=== PATIENT | female | born 1950 | race Caucasian/White ===

== ENCOUNTER 2017-05-04 18:45 | Emergency (ER) | payer BC ==
[2017-05-04 19:14] LABS: URINE APPEARANCE Cloudy; URINE BILIRUBIN Negative (NEGATIVE); URINE BLOOD 3+ (NEGATIVE); URINE GLUCOSE (UA) Negative (NEGATIVE); URINE KETONE Negative (NEGATIVE); URINE LEUK ESTERASE Negative (NEGATIVE); URINE NITRITE Negative (NEGATIVE); URINE PROTEIN 1+ (NEGATIVE); URINE UROBILINOGEN 0.2 (0.2-1.0)
[2017-05-04 19:15] LABS: URINE COLOR DK YELLOW
[2017-05-04 19:22] LABS: URINE RBC >100 /hpf (0-3)
[2017-05-04] MEDS ORDERED: morphine CARPU-JECT 4 MG/1 ML DISP.SYRIN IVPUSH ONE (19:30)
[2017-05-04] MEDS ORDERED: SODIUM CHLORIDE 0.9% 1000 ML INFUS.BAG IV ONE (19:31)
--- NOTE | 2017-05-04 19:58 | PDOC ---
History of Present Illness - General History Source: Patient Exam Limitations: No Limitations - History of Present Illness Initial Comments: 05/04/17 20:09 The patient is a 66 year old female, with a significant past medical history of hypertension, hyperlipidemia, and diabetes, who presents to the emergency department with complaints of right flank pain that began an hour and 30 minutes prior to arrival. The patient states that pain radiates to the front right side of her abdomen and notes she has had kidney stones in the past. She notes some associated nausea. She denies chest pain, shortness of breath, headache and dizziness. She denies fever, chills, vomit, diarrhea and constipation. She denies dysuria, frequency, urgency and hematuria. Allergies: rofecoxib Social history: Never smoked PCP: Dr. Jerson Johns <Nimco Jefferson - Last Filed: 05/04/17 21:35> - General History Source: Patient Exam Limitations: No Limitations - History of Present Illness Initial Comments: 05/04/17 19:55 66 yo F with h/o HTN here wtih c/o right flank pain, radiating from right flank to anterior abdomen. sharp pain, started 1 hr ago. nausea, no vomiting. no change to urine no dysuria, no frequency. no mod factors no new weakness or numbness. unsure if shes ever had kidney stones before. on exam awake alert lungs CTAB heart RRR no mrg. abd soft mild right CVA tenderness. no abd tendernees. no pulsatile mass. skin warm and dry. pulses symmetric. nuero awake alert orient x 3. moves all ext good strength. differential: msk pain, pyelo renal colic, plan ct a/p pain control. ua labs . reassess. <Angeline Del Cid - Last Filed: 05/04/17 22:42> - General Chief Complaint: Pain Stated Complaint: RIGHT FLANK PAIN Time Seen by Provider: 05/04/17 19:30 Past History <Nimco Jefferson - Last Filed: 05/04/17 21:35> - Past Medical History Anemia: No Asthma: No Cancer: No Cardiac Disorders: No CVA: No COPD: No CHF: No Dementia: No Diabetes: Yes GI Disorders: No Disorders: No HTN: Yes Hypercholesterolemia: Yes Kidney Stones: Yes Liver Disease: No Seizures: No Thyroid Disease: No - Surgical History Abdominal Surgery: No Appendectomy: No Cardiac Surgery: No Cholecystectomy: No Lung Surgery: No Neurologic Surgery: No Orthopedic Surgery: No - Psycho/Social/Smoking Cessation Hx Anxiety: No Suicidal Ideation: No Smoking History: Never smoked Have you smoked in the past 12 months: No Information on smoking cessation initiated: No Hx Alcohol Use: No Drug/Substance Use Hx: No Substance Use Type: None Hx Substance Use Treatment: No <Angeline Del Cid - Last Filed: 05/04/17 22:42> - Past Medical History Allergies/Adverse Reactions: Allergies Allergy/AdvReac Type Severity Reaction Status Date / Time rofecoxib [From Vioxx] Allergy Verified 05/04/17 19:24 Home Medications: Ambulatory Orders Amlodipine Besylate [Norvasc -] 5 mg PO DAILY 01/28/13 Atorvastatin Ca [Lipitor] 10 mg PO HS 01/28/13 Losartan/Hydrochlorothiazide [Losartan-Hctz 100-12.5 mg Tab] 1 each PO DAILY Metformin Xr [Glucophage Xr -] 500 mg PO BID 01/28/13 Oxycodone HCl/Acetaminophen [Percocet 5-325 mg Tablet] 1 tab PO Q6H PRN #15 tablet MDD 6 05/04/17 Review of Systems - Review of Systems Able to Perform ROS?: Yes Comments:: 05/04/17 20:09 GENERAL/CONSTITUTIONAL: No fever or chills. No weakness. HEAD, EYES, EARS, NOSE AND THROAT: No change in vision. No ear pain or discharge. No sore throat. GASTROINTESTINAL: +Nausea vomiting, diarrhea or constipation. GENITOURINARY: No dysuria, frequency, or change in urination. ABDOMINAL: +Right flank pain CARDIOVASCULAR: No chest pain or shortness of breath. RESPIRATORY: No cough, wheezing, or hemoptysis. MUSCULOSKELETAL: No joint or muscle swelling or pain. No neck or back pain. SKIN: No rash NEUROLOGIC: No headache, vertigo, loss of consciousness, or change in strength/ sensation. ENDOCRINE: No increased thirst. No abnormal weight change. HEMATOLOGIC/LYMPHATIC: No anemia, easy bleeding, or history of blood clots. ALLERGIC/IMMUNOLOGIC: No hives or skin allergy. <Nimco Jefferson - Last Filed: 05/04/17 21:35> *Physical Exam - Vital Signs Last Vital Signs Temp Pulse Resp BP Pulse Ox 98.3 F 71 16 161/93 97 05/04/17 19:29 05/04/17 19:29 05/04/17 19:29 05/04/17 19:29 05/04/17 19:29 - Physical Exam Comments: 05/04/17 20:10 GENERAL: Awake, alert, and fully oriented, in no acute distress HEAD: No signs of trauma EYES: PERRLA, EOMI, sclera anicteric, conjunctiva clear ENT: Auricles normal inspection, nares patent, Moist mucosa NECK: Normal ROM, supple, no lymphadenopathy, JVD, or masses LUNGS: Breath sounds equal, clear to auscultation bilaterally. No wheezes, and no crackles HEART: Regular rate and rhythm, normal S1 and S2, no murmurs, rubs or gallops ABDOMEN: +Right CVA tenderness No pulsatile mass in belly. Soft, nontender, normoactive bowel sounds. No guarding, no rebound. EXTREMITIES: Pulses in legs are symmetric. Normal range of motion, no edema. No clubbing or cyanosis. No cords, erythema, or tenderness NEUROLOGICAL: Normal speech SKIN: Warm, Dry, normal turgor, no rashes or lesions noted. <Nimco Jefferson - Last Filed: 05/04/17 21:35> - Vital Signs Last Vital Signs Temp Pulse Resp BP Pulse Ox 98.3 F 71 16 161/93 97 05/04/17 19:29 05/04/17 19:29 05/04/17 19:29 05/04/17 19:29 05/04/17 19:29 <Angeline Del Cid - Last Filed: 05/04/17 22:42> ED Treatment Course - LABORATORY CBC & Chemistry Diagram: 05/04/17 19:40 05/04/17 19:40 - ADDITIONAL ORDERS Additional order review: Laboratory Results 05/04/17 18:50 Urine Color Dk yellow Urine Appearance Cloudy Urine pH 7.0 Ur Specific [place] 1.025 Urine Protein 1+ H Urine Glucose (UA) Negative Urine Ketones Negative Urine Blood 3+ Urine Nitrite Negative Urine Bilirubin Negative Urine Urobilinogen 0.2 Ur Leukocyte Esterase Negative Urine RBC >100 Urine WBC 3-5 Ur Epithelial Cells 0-3 05/04/17 19:40 RBC 4.81 MCV 87.4 MCHC 33.7 RDW 11.4 L MPV 8.1 Neutrophils % 70.2 Lymphocytes % 20.7 Monocytes % 6.9 Eosinophils % 1.4 Basophils % 0.8 - Medications Given in the ED: ED Medications Discontinued Medications Generic Name Dose Route Start Last Admin Trade Name Freq PRN Reason Stop Dose Admin Morphine Sulfate 4 mg 05/04/17 19:30 05/04/17 19:35 Morphine Injection - IVPUSH 05/04/17 19:31 4 mg ONCE ONE Administration Sodium Chloride 500 ml 05/04/17 19:31 05/04/17 19:35 Normal Saline - IV 05/04/17 19:32 500 ml ONCE ONE Administration <Nimco Jefferson - Last Filed: 05/04/17 21:35> - LABORATORY CBC & Chemistry Diagram: 05/04/17 19:40 05/04/17 19:40 - ADDITIONAL ORDERS Additional order review: Laboratory Results 05/04/17 18:50 Urine Color Dk yellow Urine Appearance Cloudy Urine pH 7.0 Ur Specific [place] 1.025 Urine Protein 1+ H Urine Glucose (UA) Negative Urine Ketones Negative Urine Blood 3+ Urine Nitrite Negative Urine Bilirubin Negative Urine Urobilinogen 0.2 Ur Leukocyte Esterase Negative Urine RBC >100 Urine WBC 3-5 Ur Epithelial Cells 0-3 - RADIOLOGY Radiology Studies Ordered: Category Date Time Status SPIRAL- RENAL-STONE CT [CT] Stat CT Scan 05/04/17 19:30 Ordered - Medications Given in the ED: ED Medications Discontinued Medications Generic Name Dose Route Start Last Admin Trade Name Freq PRN Reason Stop Dose Admin Morphine Sulfate 4 mg 05/04/17 19:30 05/04/17 19:35 Morphine Injection - IVPUSH 05/04/17 19:31 4 mg ONCE ONE Administration Sodium Chloride 500 ml 05/04/17 19:31 05/04/17 19:35 Normal Saline - IV 05/04/17 19:32 500 ml ONCE ONE Administration <Angeline Del Cid - Last Filed: 05/04/17 22:42> Medical Decision Making - Medical Decision Making 05/04/17 21:34 after further question, pt finally recollect that she has had a kidney stone which required hospitilization for 8 days. currently pain improved after morphine and dilaudid. cT with moderate hydroureter right kidney. 4 mm stone uvj , awaiting offical read. creatinine unremarkable. urine only noted for blood. 05/04/17 22:42 ct confirms 4 mm right uvj stone, moderate hydro with stranding. pt without signs of infection . urine blood only, wbc 11, afebrile. pain improved. dc home with flomax and pain medication. <Angeline Del Cid - Last Filed: 05/04/17 22:42> *DC/Admit/Observation/Transfer - Attestations Scribe Attestion: 05/04/17 20:10 Documentation prepared by CASEY Resendez, acting as medical reimbursement specialist for Angeline Del Cid MD. <Nimco Jefferson - Last Filed: 05/04/17 21:35> <Angeline Del Cid - Last Filed: 05/04/17 22:42> Diagnosis at time of Disposition: Renal colic on right side - Discharge Dispostion Disposition: HOME Condition at time of disposition: Improved - Prescriptions Prescriptions: Oxycodone HCl/Acetaminophen [Percocet 5-325 mg Tablet] 1 tab PO Q6H PRN #15 tablet MDD 6 PRN Reason: Pain - Referrals Referrals: Jerson Johns MD [Primary Care Provider] - Jad Hanks MD [Staff Physician] - - Patient Instructions Printed Discharge Instructions: Kidney Stones -- Adult Additional Instructions: take percocet one every 6 hours as needed for pain. you should take over the counter stool softner when using this medication as it can cause constipation. follow up with urology, call to schedule ( see referral for phone number ) dr Manning. return for fever, persistant or worsening pain, inability to urinate or any concerns. Print Language: THAI
[2017-05-04 20:01] LABS: BASOPHIL 0.8 % (0-2.0); EOSINOPHIL 1.4 % (0-4.5); MCH 29.5 pg (25.7-33.7); MCHC 33.7 g/dl (32.0-36.0); MEAN CELL VOLUME 87.4 fl (80-96); MEAN PLT VOLUME 8.1 fl (7.5-11.1); NEUTROPHILS 70.2 % (42.8-82.8); PLATELET COUNT 345 K/MM3 (134-434); RDW 11.4 % (11.6-15.6); WHITE BLOOD COUNT 11.4 K/mm3 (4.0-10.8)
[2017-05-04 20:06] VITALS: PULSE 71; TEMP 98.3
[2017-05-04 20:10] LABS: ALBUMIN 4.7 g/dl (3.5-5.0); ALK PHOS 69 U/L (32-92); ANION GAP 9 (8-16); BILIRUBIN,TOTAL 0.3 mg/dl (0.2-1.0); CALCIUM 9.6 mg/dl (8.4-10.2); CO2 29 mmol/L (22-28); CREATININE 0.6 mg/dl (0.6-1.3); GLUCOSE,RANDOM 145 mg/dl (74-106); SGOT/AST 19 U/L (10-42); SGPT/ALT 19 U/L (10-40); TOT PROT 7.8 g/dl (6.4-8.3)
[2017-05-04] MEDS ORDERED: HYDROmorphone HCL CARPU-JECT 1 MG/1 ML DISP.SYRIN ONE (20:56)
[2017-05-04] MEDS ORDERED: HYDROmorphone HCL CARPU-JECT 1 MG/1 ML DISP.SYRIN IVPUSH ONE (20:57)
[2017-05-04 21:53] VITALS: BP 160/100
[2017-05-04] MEDS ORDERED: ONDANSETRON *ODT* 4 MG TABLET SL ONE (22:47)
[2017-05-04] MEDS ORDERED: ONDANSETRON *ODT* 4 MG TABLET ONE (22:47)
== END 2017-05-04 23:00 | disposition home or self-care (01) ==
LOC: FER 18:45
PROC: 3E033NZ Introduction of Analgesics, Hypnotics, Sedatives into Peripheral Vein, Percutaneous Approach (ICD-10-PCS; principal; 2017-05-04)
DX: N13.2 Hydronephrosis with renal and ureteral calculous obstruction (principal); Z87.442 Personal history of urinary calculi; I10 Essential (primary) hypertension; E78.5 Hyperlipidemia, unspecified; E11.9 Type 2 diabetes mellitus without complications; Z79.84 Long term (current) use of oral hypoglycemic drugs
CPT/HCPCS: 36415; 74176; 80053; 81003; 81015; 85025; 99281-25

== ENCOUNTER 2023-03-18 07:19 | Day surgery (SDC) | payer OTHER, BC ==
[2023-03-14 12:09] VITALS: BMI 31.2
[2023-03-18] MEDS ORDERED: TRANEXAMIC ACID 1000 MG/10 ML VIAL IVPUSH ONE (07:24)
[2023-03-18] MEDS ORDERED: ONDANSETRON 4 MG/2 ML VIAL IVPUSH PRN (07:42)
[2023-03-18] MEDS ORDERED: oxyCODONE HCL 5 MG TABLET PO PRN (07:42)
[2023-03-18] MEDS ORDERED: ACETAMINOPHEN 1000 MG/100 ML BAG IVPB ONE (07:42)
[2023-03-18] MEDS ORDERED: LACTATED RINGERS SOLUTION 1,000 ML IV SCH (07:45)
[2023-03-18] MEDS ORDERED: VANCOMYCIN 1,000 MG VIAL (RESTRICTED TO ID ONLY) ONE (08:16)
[2023-03-18] MEDS ORDERED: ceFAZolin SODIUM 1 GM VIAL ONE ×2 (08:16→09:35)
[2023-03-18] MEDS ORDERED: THROMBIN (BOVINE) 5,000 UNIT VIAL TP ONE (08:16)
[2023-03-18] MEDS ORDERED: BUPIVACAINE LIPOSOME/PF (EXPAREL) 266 MG/20 ML VIAL ONE (08:34)
[2023-03-18] MEDS ORDERED: MIDAZOLAM HCL 2 MG/2 ML SINGLE DOSE VIAL ONE (08:34)
[2023-03-18] MEDS ORDERED: BUPIVACAINE HCL/PF 0.5% (5MG/ML) 10 ML VIAL ONE (08:35)
[2023-03-18] MEDS ORDERED: CEFAZOLIN 2 GM in DEXTROSE 5%-WATER - 50 ML IVPB ONE (09:30)
[2023-03-18] MEDS ORDERED: DEXAMETHASONE SOD PHOSPHATE 4 MG/1 ML VIAL ONE (09:39)
[2023-03-18] MEDS ORDERED: PROPOFOL 40 ML ONE (09:40)
[2023-03-18] MEDS ORDERED: PATIENT'S OWN MEDICATION (NON-FORMULARY) (Linaclotide [Linzess] 72 MCG Capsule) PO SCH (10:00)
[2023-03-18] MEDS ORDERED: BUPIVICAINE 0.25%/MORPH PF/KETOROLAC - 51ML DISP.SYRINGE IA ONE (10:21)
[2023-03-18] MEDS ORDERED: PROPOFOL 20 ML ONE (10:29)
[2023-03-18] MEDS ORDERED: FENTANYL CITRATE/PF 50 MCG/ML VIAL ONE ×2 (11:22→11:41)
[2023-03-18] MEDS: KETOROLAC TROMETHAMINE 30 MG/1 ML VIAL IVPUSH SCH ×2 (11:30→14:05)
[2023-03-18] MEDS: oxyCODONE HCL 5 MG TABLET PO PRN (12:08)
[2023-03-18 12:40] VITALS: RESP 18
[2023-03-18] MEDS: oxyCODONE HCL 10 MG SUSTAINED ACTING TABLET PO SCH (14:10)
[2023-03-18] MEDS: SENNOSIDES/DOCUSATE COMBO (SENNA PLUS) TABLET (UD) PO SCH ×2 (14:50→21:48)
[2023-03-18] MEDS: amLODIPine BESYLATE 10 MG TABLET (FP) PO SCH (14:50)
[2023-03-18] MEDS: HYDROCHLOROTHIAZIDE 12.5 MG CAPSULE (FP) PO SCH (14:51)
[2023-03-18] MEDS: ACETAMINOPHEN 500 MG TABLET (FP) PO SCH ×2 (18:49→23:59)
[2023-03-18] MEDS: MULTIVITAMINS (DAILY MVI) TABLET (FP) PO SCH (18:51)
[2023-03-18] MEDS: PANTOPRAZOLE 40 MG TABLET PO SCH (18:51)
[2023-03-18] MEDS: CEFAZOLIN SODIUM 2 GM in DEXTROSE 5%-WATER 100 ML IVPB SCH (20:05)
[2023-03-18] MEDS ORDERED: ATORVASTATIN CA 20 MG TABLET (FP) PO SCH (22:00)
[2023-03-19] MEDS: CEFAZOLIN SODIUM 2 GM in DEXTROSE 5%-WATER 100 ML IVPB SCH (02:00)
[2023-03-19] MEDS: ACETAMINOPHEN 500 MG TABLET (FP) PO SCH (06:17)
[2023-03-19] MEDS: oxyCODONE HCL 5 MG TABLET PO PRN (06:18)
[2023-03-19] MEDS ORDERED: ASPIRIN 325 MG TABLET PO SCH (08:00)
[2023-03-19] MEDS: amLODIPine BESYLATE 10 MG TABLET (FP) PO SCH (09:26)
[2023-03-19] MEDS: oxyCODONE HCL 10 MG SUSTAINED ACTING TABLET PO SCH ×2 (09:26)
[2023-03-19] MEDS: MULTIVITAMINS (DAILY MVI) TABLET (FP) PO SCH (09:27)
[2023-03-19] MEDS: SENNOSIDES/DOCUSATE COMBO (SENNA PLUS) TABLET (UD) PO SCH (09:27)
[2023-03-19] MEDS: HYDROCHLOROTHIAZIDE 12.5 MG CAPSULE (FP) PO SCH (09:28)
[2023-03-19] MEDS: PANTOPRAZOLE 40 MG TABLET PO SCH (09:28)
[2023-03-19] MEDS ORDERED: LOSARTAN POTASSIUM 50 MG TABLET PO SCH (10:00)
[2023-03-19 10:02] VITALS: BP 135/66; PULSE 96; TEMP 99.1
== END 2023-03-19 13:31 | disposition home health service (06) ==
LOC: FASUSAT 07:19 → FM/S 12:28 → FASUSAT 03-19 13:31
PROVIDERS: ATTEND Orthopaedic Surgery
PROC: 0SRC0L9 Replacement of Right Knee Joint with Medial Unicondylar Synthetic Substitute, Cemented, Open Approach (ICD-10-PCS; principal; 2023-03-18 09:50)
DX: M17.11 Unilateral primary osteoarthritis, right knee (principal)
CPT/HCPCS: 20985; 27446; C1776; S2900; 73560-TC-RT-FY; 82962; 94760; 97010-GP; 97116-GP; 97162-GP; C1713; C1889

== ENCOUNTER 2023-07-17 08:20 | Day surgery (SDC) | payer OTHER, BC ==
[2023-07-16 10:11] VITALS: BMI 31.1
[2023-07-17] MEDS ORDERED: LIDOCAINE HCL 1%, 10 MG/ML (20ML VIAL) ONE (09:37)
[2023-07-17] MEDS ORDERED: BUPIVACAINE HCL/PF 0.25% (2.5MG/ML) 10 ML VIAL ONE (09:37)
[2023-07-17] MEDS ORDERED: ONDANSETRON 4 MG/2 ML VIAL ONE (10:03)
[2023-07-17] MEDS ORDERED: MIDAZOLAM HCL 2 MG/2 ML SINGLE DOSE VIAL ONE (10:03)
[2023-07-17] MEDS ORDERED: FENTANYL CITRATE/PF 50 MCG/ML VIAL ONE (10:04)
[2023-07-17] MEDS ORDERED: PROPOFOL 20 ML ONE (10:22)
[2023-07-17] MEDS ORDERED: SUCCINYLCHOLINE CHLORIDE 200 MG/10 ML SYRINGE ONE (10:22)
[2023-07-17 12:26] VITALS: RESP 20; TEMP 97.1
[2023-07-17 12:51] VITALS: BP 127/77; PULSE 92
== END 2023-07-17 11:50 | disposition home or self-care (01) ==
LOC: FASU 08:20
PROVIDERS: ATTEND Orthopaedic Surgery
PROC: 0RSWXZZ Reposition Right Finger Phalangeal Joint, External Approach (ICD-10-PCS; 2023-07-17)
PROC: 0LN70ZZ Release Right Hand Tendon, Open Approach (ICD-10-PCS; principal; 2023-07-17 10:39)
DX: M65.311 Trigger thumb, right thumb (principal); M24.841 Other specific joint derangements of right hand, not elsewhere classified
CPT/HCPCS: 82962; 88304-TC